=== PATIENT | male | born 1985 | race Caucasian/White ===

== ENCOUNTER 2019-12-19 10:29 | Emergency (ER) | payer BC ==
[~2019-12-19] VITALS: Ht 182.8 cm; Wt 86.2 kg
[2019-12-19 11:25] LABS: BASO # 0.1 10*3/uL (0.0-0.1); BASO % 1.1 % (0.0-1.0); EOS # 0.1 10*3/uL (0.0-0.4); EOS % 1.9 % (1.0-4.0); HEMATOCRIT 45.6 % (42.0-52.0); LYMPH # 1.1 10*3/uL (1.3-4.4); LYMPH % 22.6 % (27.0-41.0); MEAN CORPUSCULAR HGB 31.1 pg (27.0-31.0); MEAN CORPUSCULAR HGB CONC 33.1 g/dl (33.0-37.0); MEAN PLATELET VOLUME 9.8 fl (9.6-12.3); MONO # 0.4 10*3/uL (0.1-1.0); MONO % 9.1 % (3.0-9.0); NEUT # 3.1 10*3/uL (2.3-7.9); NEUT % 65.1 % (47.0-73.0); PLATELET COUNT AUTOMATED 184 10*3/uL (130-400); RED BLOOD COUNT 4.85 10*6/uL (4.50-5.90); RED CELL DISTRI WIDTH 13.1 % (0-14.5); WHITE BLOOD COUNT 4.7 10*3/uL (4.8-10.8)
[2019-12-19 11:42] LABS: ACT PARTIAL THROMBO TIME 28.8 SECONDS (20.0-32.1); ALBUMIN 4.1 gm/dl (3.1-4.5); BUN 10 mg/dl (7-24); CHLORIDE 107 mmol/L (98-107); CREATININE 0.82 mg/dL (0.70-1.30); INTERNATIONAL NORM RATIO 1.2 (2.0-3.5); POTASSIUM 4.3 mmol/L (3.5-5.1); SGOT/AST 36 IU/L (3-35); SGPT/ALT 50 U/L (12-78); SODIUM 139 mmol/L (136-145); TOTAL PROTEIN 7.7 gm/dL (6.4-8.2)
[2019-12-19 11:43] LABS: ACETAMINOPHEN (TYLENOL) < 5.0 ug/ml (10-30); ALKALINE PHOSPHATASE 73 U/L (45-117)
[2019-12-19] MEDS ORDERED: MEDROL DOSEPAK4 MG PO (12:03)
[2019-12-19] MEDS ORDERED: CYCLOBENZAPRINE10 MG PO (12:03)
== END 2019-12-19 12:21 | disposition home or self-care (01) ==
LOC: ED 10:29
PROVIDERS: Emergency Medicine
DX: M54.42 Lumbago with sciatica, left side (principal); M19.90 Unspecified osteoarthritis, unspecified site; R79.1 Abnormal coagulation profile; Z88.8 Allergy status to other drugs, medicaments and biological substances

== ENCOUNTER 2020-01-05 13:33 | Emergency (ER) | payer BC ==
[~2020-01-05] VITALS: Ht 180.3 cm; Wt 84.4 kg
[~2020-01-05 13:33] MED LIST: CYCLOBENZAPRINE10 MG PO; MEDROL DOSEPAK4 MG PO
[2020-01-05] MEDS ORDERED: MEDROL DOSEPAK4 MG PO (14:38)
[2020-01-05] MEDS ORDERED: KETOROLAC10 MG PO (14:38)
== END 2020-01-05 14:41 | disposition home or self-care (01) ==
LOC: ED 13:33
DX: M54.16 Radiculopathy, lumbar region (principal); Z88.8 Allergy status to other drugs, medicaments and biological substances; Z79.899 Other long term (current) drug therapy